=== PATIENT | female | born 1945 | race Caucasian/White ===

== ENCOUNTER → 2016-06-07 | Outpatient (CLI) | payer OTHER | LOC: RAD 01:29 | DX: Z12.31 Encounter for screening mammogram for malignant neoplasm of breast (principal) ==

== ENCOUNTER → 2016-10-25 | Outpatient (CLI) | payer OTHER | LOC: NUC 10:08 | DX: M85.89 Other specified disorders of bone density and structure, multiple sites (principal); Z78.0 Asymptomatic menopausal state ==

== ENCOUNTER → 2017-09-14 | Outpatient (CLI) | payer OTHER ==
[~2017-09-14] VITALS: Ht 154.9 cm; Wt 54.4 kg
[~2017-09-14] MED LIST: ASPIR 8181 MG PO; CALCIUM 500 +1 EAC5 PO; CO Q-10100 MG PO; FISH OIL 1,001000 M2 PO; PROTONIX40 M1 PO; VITAMIN D1000 UNI1 PO; XANAX 0.25 MG0.25 MG PO; ZOCOR20 MG PO
--- NOTE | ~2017-09-14 | P ---
[facility] [place] [address] PROCEDURE REPORT Name: JOSEE YATES Room #: REG [facility]#: [id number] Admission: 09/14/17 Attend Phys: Junior Rogel Discharge: Date of : 43 Report #: [id number] THIS REPORT FOR: //name// CC: Junior Maynard MD DATE OF SERVICE: 09/14/2017 PROCEDURE PERFORMED: Colonoscopy. HISTORY OF PRESENT ILLNESS: The patient is a 71-year-old female who is here today for routine screening colonoscopy. She denies any symptoms. No family history of colon cancer. DESCRIPTION OF PROCEDURE: The risks and benefits of the procedure were explained to the patient, those risks including but not limited to bleeding, perforation, the risk of sedation. She understood these risks and gave informed consent. Sedation was given using propofol per anesthesia. Next, a digital rectal exam was initially performed, which was normal. Next, using a standard Olympus colonoscope, the scope was placed in the patient's anus and advanced under direct vision to the cecum. The overall prep was excellent. The cecum and ileocecal valve were normal in appearance. Ascending, transverse and descending colon were normal. Multiple small diverticula were noted in the sigmoid colon, no evidence of inflammation, otherwise normal. The rectal mucosa was normal. On retroflexion, small nonbleeding internal hemorrhoids were noted. The scope was then withdrawn and the procedure terminated. The patient tolerated the procedure well. IMPRESSION: 1. Sigmoid diverticulosis. 2. Small internal hemorrhoids. 3. Otherwise, normal colonoscopy. RECOMMENDATIONS: 1. Observe the patient at this point. 2. High fiber diet. Thank you for allowing me to participate in her care. By: [id number] [id number] Junior Gorman MD /nt
== END | disposition home or self-care (01) ==
LOC: GI 06:56
DX: Z12.11 Encounter for screening for malignant neoplasm of colon (principal); K57.30 Diverticulosis of large intestine without perforation or abscess without bleeding; K64.8 Other hemorrhoids; E78.5 Hyperlipidemia, unspecified; M81.0 Age-related osteoporosis without current pathological fracture; K21.9 Gastro-esophageal reflux disease without esophagitis; Z87.891 Personal history of nicotine dependence; Z98.890 Other specified postprocedural states; Z79.899 Other long term (current) drug therapy; Z88.2 Allergy status to sulfonamides; Z79.82 Long term (current) use of aspirin
CPT/HCPCS: 62110; 62900

== ENCOUNTER → 2018-06-13 | Outpatient (CLI) | payer OTHER | LOC: RAD 02:11 | DX: Z12.31 Encounter for screening mammogram for malignant neoplasm of breast (principal) ==

== ENCOUNTER → 2019-07-03 | Outpatient (CLI) | payer OTHER | LOC: BC 10:40 | DX: Z12.31 Encounter for screening mammogram for malignant neoplasm of breast (principal) ==

== ENCOUNTER → 2019-12-12 | Outpatient (CLI) | payer OTHER | LOC: NUC 13:29 | PROVIDERS: ATTEND Obstetrics & Gynecology | DX: M85.88 Other specified disorders of bone density and structure, other site (principal) ==

== ENCOUNTER → 2020-04-28 | Outpatient (CLI) | payer OTHER ==
[~2020-04-28] MED LIST changes: +PEPCID AC10 MG PO; +PROBIOTIC1 EAC7 PO
== END ==
LOC: LAB 11:01
PROVIDERS: ATTEND Specialist
DX: Z01.812 Encounter for preprocedural laboratory examination (principal); Z20.822 Contact with and (suspected) exposure to COVID-19

== ENCOUNTER → 2020-05-02 | Outpatient (CLI) | payer OTHER ==
[~2020-05-02] VITALS: Ht 154.9 cm; Wt 60.3 kg
--- NOTE | ~2020-05-02 | P ---
[facility] [address] PROCEDURE REPORT Name: JOSEE YATES Room #: REG MELISSA Vahe#: [id number] Admission: 05/02/20 Attend Phys: Junior Rogel Discharge: Date of : 43 Report #: [id number] THIS REPORT FOR: cc: Kindra Maynard MD, Jennifer L MD McElhinney, Christian C. MD ~ DATE OF SERVICE: 05/02/2020 PROCEDURE PERFORMED: Upper endoscopy with biopsies. HISTORY OF PRESENT ILLNESS: The patient is a 74-year-old female with long history of gastroesophageal reflux disease, who has been on Protonix for many years, in general was controlling symptoms fairly well, but recently has had increased symptoms of heartburn, chest pressure. Denies any dysphagia. No nausea or vomiting. She stopped her Protonix, but 1 month ago, started Pepcid 10 mg every day without much benefit. Bowel movements have been normal. Plan is for upper endoscopy. DESCRIPTION OF PROCEDURE: The risks and benefits of the procedure were explained to the patient, those risks including but not limited to bleeding, perforation and the risk of sedation. She understood these risks and gave informed consent. Sedation was given using propofol per Anesthesia. Next, using a standard Olympus upper endoscope, the scope was placed in the patient's mouth and advanced under direct vision through the esophagus, stomach and into the second portion of the duodenum. The upper and mid esophagus was normal in appearance. In the distal esophagus at the GE junction, 2 small pink tongues were noted. Biopsies were obtained to rule out the possibility of Batista's esophagus. No evidence of esophagitis was noted. Upon entering the stomach, a small hiatal hernia was noted. Overall, the gastric mucosa was normal. The pylorus was normal and patent. The duodenal bulb, first and second portion were all normal. The scope was then withdrawn and the procedure terminated. The patient tolerated the procedure well. IMPRESSION: 1. 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 2. Hiatal hernia. 3. Otherwise, normal upper endoscopy. RECOMMENDATIONS: 1. Await biopsy results. 2. We discussed switching to a different PPI. We will start Prevacid 30 mg every day. If the patient has continued symptoms, may need to consider b.i.d. dosing at that point. [address] [address] PROCEDURE REPORT Name: JOSEE YATES Room #: REG [facility]#: [id number] Admission: 05/02/20 Attend Phys: Junior Rogel Discharge: Date of : 43 Report #: [id number] Thank you for allowing me to participate in her care. By: [id number] Junior Gorman MD /dashawn
--- NOTE | 2020-05-05 19:06 | PATH ---
[facility] [address] [address] [place] [address] PATHOLOGY RPT PROCEDURE Name: MILANTABBYDori GALLEGOS Room #: REG MELISSA Mariano.#: [id number] Admission: 05/02/20 Date of : 43 Discharge: Report #: [id number] Path Case #: [id number] [facility] Accession Number: [id number] . 01 Material submitted: . esophagus - BIOPSY DISTAL ESOPHAGUS RULE OUT BABCOCK'S. Modifiers: distal . 01 Clinical history: . EGD PRE-OP DIAGNOSIS: REFLUX POST-OP DIAGNOSIS: REFLUX, HIATAL HERNIA . 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 - Fragments of squamous mucosa with mild esophagitis. - Negative for dysplasia or malignancy. . (IUV:mml; 05/05/2020) QLM 05/05/2020 1249 Local . 02 Comment: The above diagnosis of Babcock's esophagus is made due to presence of intestinal metaplasia and with the assumption that the biopsies were obtained from the columnar mucosa in the distal esophagus located at least 1 cm proximal to the top of the gastric folds as per the 2016 ACG guidelines. . (IUV:mml; 05/05/2020) . 02 Electronically signed: . Jyoti Ge MD, Pathologist NPI- [id number] . 01 Gross description: . Received in formalin labeled "Theresafrancesco Tabby, biopsy distal esophagus rule out Babcock's" are 2 fragments of olivier-brown soft tissue measuring 0.3 x 0.2 x 0.2 cm and 0.7 x 0.3 x 0.2 cm. The specimen is submitted entirely in A1. ([facility]; 05/04/2020) . . . GZA/GZA 05/04/2020 1018 Local . 02 Pathologist provided ICD-10: K22.[address] [address] PATHOLOGY RPT PROCEDURE Name: TABBY YATES Room #: REG [facility]..#: [id number] Admission: 05/02/20 Date of : 43 Discharge: Report #: [id number] Path Case #: [id number] . 02 [facility] . [id number] Specimen Comment: A courtesy copy of this report has been sent to [phone], [phone] Specimen Comment: [id number] Specimen Comment: Report sent to / DR CALDERON Performed at: [address], [place], [place] [id number] MD Fermín Morley MD Phone: [phone] Performed at: [address] [id number] MD Jyoti Ge MD Phone: [phone]
== END | disposition home or self-care (01) ==
LOC: GI 06:54
PROVIDERS: ATTEND Specialist
DX: K21.00 Gastro-esophageal reflux disease with esophagitis, without bleeding (principal); K22.70 Barrett's esophagus without dysplasia; K44.9 Diaphragmatic hernia without obstruction or gangrene; E78.5 Hyperlipidemia, unspecified; R12 Heartburn; Z98.890 Other specified postprocedural states; Z79.899 Other long term (current) drug therapy; Z87.891 Personal history of nicotine dependence; Z88.2 Allergy status to sulfonamides
CPT/HCPCS: 62110; 62900

== ENCOUNTER → 2020-07-03 | Outpatient (CLI) | payer OTHER | LOC: BC 08:46 | PROVIDERS: ATTEND Internal Medicine | DX: Z12.31 Encounter for screening mammogram for malignant neoplasm of breast (principal) ==